=== PATIENT | male | born 1930 | race African-American/Black ===

== ENCOUNTER 2016-06-07 06:50 | Inpatient (IN) | payer OTHER ==
[~2016-06-07] VITALS: Ht 167.6 cm; Wt 70.0 kg
[2016-06-07] MEDS ORDERED: IPRATROPIUM BROM 0.5 MG/2.5ML INH SOL NEB ONE (07:00)
[2016-06-07] MEDS ORDERED: methylPREDNISolone SOD SUCC 125 MG/2 ML VL IV ONE (07:00)
[2016-06-07] MEDS ORDERED: ALBUTEROL SULF 2.5 MG/0.5ML(0.5%) NEB SOLN HHN STA (07:00)
[2016-06-07 07:57] LABS: Basophils # (auto) 0 uL; Basophils % (auto) 0.3 % (0.0-2.0); DEFINITIVE VIEW TRANSMISSION; Eosinophils # (auto) 0.3 uL; Eosinophils % (auto) 2.4 % (0.0-7.0); Hematocrit 29.4 % (41.0-53.0); Hemoglobin 9.4 g/dL (13.5-17.5); Lymphocytes # (auto) 0.7 uL; Lymphocytes % (auto) 5.7 % (10.0-50.0); Mean Corpuscular Hemoglobin 31.6 pg (28.0-32.0); Mean Corpuscular Volume 98.8 fL (80.0-100.0); Monocytes # (auto) 0.9 uL; Neutrophils # (auto) 11.1 uL; Neutrophils % (auto) 84.6 % (37.0-80.0); White Blood Cell 13.1 10^3/uL (4.4-10.8)
[2016-06-07] MEDS ORDERED: LEVOFLOXACIN 500MG 100 ML IV ONE (08:15)
[2016-06-07 08:22] LABS: Red Cell Distribution Width 24.4 % (11.6-16.0)
[2016-06-07 08:24] LABS: Platelet Count (auto) 981 10^3/uL (140-450)
[2016-06-07 08:26] LABS: Albumin 3.3 g/dL (3.4-5.0); BUN/Creatinine Ratio 12.6; Bilirubin, Total 0.4 mg/dL (0.2-1.0); Magnesium 2.8 mg/dL (1.6-2.6)
[2016-06-07] MEDS ORDERED: SODIUM CHLORIDE 0.9% 1,000 ML IV SCH (08:33)
[2016-06-07 08:38] LABS: B-Type Natriuretic Peptide 185.02 pg/mL (0-100); Temperature: 22.4 C (20.0-25.0)
[2016-06-07] MEDS ORDERED: ACETAMINOPHEN 500 MG TAB PO PRN (08:45)
[2016-06-07] MEDS ORDERED: LACTULOSE 20Gm/30ML SOLN PO PRN (08:45)
[2016-06-07] MEDS ORDERED: OSELTAMIVIR 75 MG CAP PO ONE (08:45)
[2016-06-07] MEDS ORDERED: MORPHINE SULF INJ 2 MG/ML SYRINGE 1ML IV PRN ×2 (08:45)
[2016-06-07] MEDS ORDERED: LORazepam 0.5 MG TAB PO PRN (08:45)
[2016-06-07] MEDS ORDERED: ONDANSETRON HCL 4 MG/2 ML VIAL IV PRN (08:45)
[2016-06-07] MEDS ORDERED: ALBUTEROL SULF 2.5 MG/0.5ML(0.5%) NEB SOLN NEB PRN (08:45)
[2016-06-07] MEDS: cefTRIAXone 1GM/50ML D5W 50 ML IV SCH (09:16)
[2016-06-07] MEDS: AZITHROMYCIN 500MG/D5W 250ML 250 ML IV SCH (10:00)
[2016-06-07] MEDS: ENOXAPARIN SOD 40 MG/0.4 ML SYRINGE SC SCH (10:00)
[2016-06-07 12:05] LABS: Anisocytosis Moderate; Ovalocytes FEW; Platelet Estimate Markedly Increased
[2016-06-07] MEDS: methylPREDNISolone SOD SUCC 40 MG/ML VL IV SCH ×2 (12:05→18:22)
[2016-06-07 12:12] LABS: Burr Cells FEW; Giant Platelets Few
[2016-06-07] MEDS: IPRATROPIUM BROM 0.5 MG/2.5ML INH SOL NEB SCH ×2 (12:15→17:47)
[2016-06-07] MEDS: ALBUTEROL SULF 2.5 MG/0.5ML(0.5%) NEB SOLN NEB SCH ×2 (12:15→17:47)
[2016-06-07 15:35] VITALS: BP 148/55
[2016-06-07] MEDS ORDERED: hydrALAZINE HCL 20 MG/ML VL IV ONE (18:15)
[2016-06-07] MEDS: NITROGLYCERIN 0.4 MG SL TAB SL PRN (18:20)
[2016-06-07] MEDS ORDERED: IPRATROPIUM BROM 0.5 MG/2.5ML INH SOL ONE ×2 (18:36→18:41)
[2016-06-07] MEDS ORDERED: ALBUTEROL SULF 2.5 MG/0.5ML(0.5%) NEB SOLN ONE (18:42)
[2016-06-07] MEDS ORDERED: ASPirin 81 mg TAB PO ONE (19:00)
[2016-06-07] MEDS: FUROSEMIDE 40 MG/4 ML VIAL IV SCH (19:11)
[2016-06-07 20:00] VITALS: BP 150/57
[2016-06-07 20:53] LABS: B-Type Natriuretic Peptide 289.17 pg/mL (0-100)
[2016-06-07 20:54] LABS: Temperature: 23.1 C (20.0-25.0)
[2016-06-07] MEDS ORDERED: OSELTAMIVIR 75 MG CAP PO SCH (22:00)
[2016-06-07] MEDS: ATORVASTATIN 20 MG TAB PO SCH (22:10)
[2016-06-08] MEDS: methylPREDNISolone SOD SUCC 40 MG/ML VL IV SCH ×4 (00:15→18:14)
[2016-06-08] MEDS: IPRATROPIUM BROM 0.5 MG/2.5ML INH SOL NEB SCH ×4 (00:40→18:25)
[2016-06-08] MEDS: ALBUTEROL SULF 2.5 MG/0.5ML(0.5%) NEB SOLN NEB SCH ×4 (00:40→18:26)
[2016-06-08 02:07] VITALS: BP 150/57
[2016-06-08] MEDS: NITROGLYCERIN 0.4 MG SL TAB SL PRN (03:28)
[2016-06-08 04:29] LABS: Basophils # (auto) 0 uL; Basophils % (auto) 0.1 % (0.0-2.0); DEFINITIVE VIEW TRANSMISSION; Eosinophils # (auto) 0 uL; Hematocrit 26.8 % (41.0-53.0); Hemoglobin 8.6 g/dL (13.5-17.5); Lymphocytes # (auto) 0.7 uL; Lymphocytes % (auto) 5.1 % (10.0-50.0); Mean Corpuscular Hemoglobin 31.3 pg (28.0-32.0); Mean Corpuscular Hgb Conc. 32.1 g/dL (32.0-36.0); Mean Corpuscular Volume 97.5 fL (80.0-100.0); Mean Platelet Volume 7.3 fL (7.4-10.4); Monocytes # (auto) 0.6 uL; Monocytes % (auto) 4.2 % (0.0-12.0); Neutrophils # (auto) 12.3 uL; Neutrophils % (auto) 90.6 % (37.0-80.0); SUSPECT VIEW TRANSMISSION; White Blood Cell 13.6 10^3/uL (4.4-10.8)
[2016-06-08 04:32] LABS: Red Cell Distribution Width 24.2 % (11.6-16.0)
[2016-06-08 04:37] LABS: Platelet Count (auto) 923 10^3/uL (140-450)
[2016-06-08 04:44] LABS: Anisocytosis Moderate; Burr Cells FEW; Giant Platelets Few; Ovalocytes FEW; Platelet Estimate Markedly Increased; Tear Drop Cells FEW
[2016-06-08 05:06] LABS: Albumin 3.1 g/dL (3.4-5.0); Bilirubin, Total 0.4 mg/dL (0.2-1.0); Calcium 8.8 mg/dL (8.5-10.1); Potassium 4.6 mmol/L (3.5-5.1); Total Protein 6.7 g/dL (6.4-8.2)
[2016-06-08 05:25] LABS: B-Type Natriuretic Peptide 317.61 pg/mL (0-100)
[2016-06-08] MEDS: cefTRIAXone 1GM/50ML D5W 50 ML IV SCH (09:17)
[2016-06-08] MEDS: ASPirin 81 mg TAB PO SCH (10:00)
[2016-06-08] MEDS: AZITHROMYCIN 500MG/D5W 250ML 250 ML IV SCH (10:00)
[2016-06-08] MEDS: ENOXAPARIN SOD 40 MG/0.4 ML SYRINGE SC SCH (10:00)
[2016-06-08] MEDS: FUROSEMIDE 40 MG/4 ML VIAL IV SCH (10:00)
[2016-06-08] MEDS: NITROGLYCERIN 0.2MG/HR TOPICAL PATCH TD SCH (10:00)
[2016-06-08] MEDS: POTASSIUM CHL 20 Meq TABLET PO SCH (10:00)
[2016-06-08] MEDS ORDERED: AML5T PO (10:59)
[2016-06-08] MEDS ORDERED: ATOR10TA PO (10:59)
[2016-06-08] MEDS ORDERED: TERA2CAP45 PO (10:59)
[2016-06-08] MEDS ORDERED: LEVO100T8 PO (11:01)
[2016-06-08] MEDS ORDERED: ATEN-60 PO (11:01)
[2016-06-08] MEDS ORDERED: MULTPOW OR (11:08)
[2016-06-08] MEDS ORDERED: PEN400T PO (11:08)
[2016-06-08] MEDS ORDERED: ASPI-498 OR (11:08)
[2016-06-08] MEDS ORDERED: COEN400C8 OR (11:08)
[2016-06-08] MEDS ORDERED: GINK500C PO (11:10)
[2016-06-08] MEDS ORDERED: [UNRECOGNIZED DRUG - OTHER] PO (11:12)
[2016-06-08] MEDS ORDERED: [UNRECOGNIZED DRUG - CODE] EX (11:17)
[2016-06-08] MEDS ORDERED: CARVEDILOL 12.5 MG TAB PO ONE (11:30)
[2016-06-08] MEDS ORDERED: hydrALAZINE HCL 20 MG/ML VL IV ONE (11:30)
[2016-06-08] MEDS ORDERED: ENOXAPARIN SOD 80 MG/0.8ML SYRINGE SC SCH (22:00)
[2016-06-08] MEDS: CARVEDILOL 12.5 MG TAB PO SCH (22:21)
[2016-06-08] MEDS: ATORVASTATIN 20 MG TAB PO SCH (22:21)
[2016-06-09] MEDS: ALBUTEROL SULF 2.5 MG/0.5ML(0.5%) NEB SOLN NEB SCH ×4 (00:22→18:45)
[2016-06-09] MEDS: IPRATROPIUM BROM 0.5 MG/2.5ML INH SOL NEB SCH ×4 (00:22→18:45)
[2016-06-09] MEDS: methylPREDNISolone SOD SUCC 40 MG/ML VL IV SCH ×4 (00:27→20:38)
[2016-06-09 05:50] LABS: Basophils # (auto) 0 uL; DEFINITIVE VIEW TRANSMISSION; Eosinophils # (auto) 0 uL; Hematocrit 26.4 % (41.0-53.0); Hemoglobin 8.6 g/dL (13.5-17.5); Lymphocytes # (auto) 0.4 uL; Lymphocytes % (auto) 2.6 % (10.0-50.0); Mean Corpuscular Hemoglobin 31.3 pg (28.0-32.0); Mean Corpuscular Hgb Conc. 32.5 g/dL (32.0-36.0); Mean Corpuscular Volume 96.4 fL (80.0-100.0); Mean Platelet Volume 7.2 fL (7.4-10.4); Monocytes # (auto) 0.8 uL; Monocytes % (auto) 4.7 % (0.0-12.0); Neutrophils # (auto) 15.1 uL; Neutrophils % (auto) 92.7 % (37.0-80.0); SUSPECT VIEW TRANSMISSION; White Blood Cell 16.3 10^3/uL (4.4-10.8)
[2016-06-09 06:01] LABS: Red Cell Distribution Width 24.6 % (11.6-16.0)
[2016-06-09 06:03] LABS: Platelet Count (auto) 879 10^3/uL (140-450)
[2016-06-09 06:40] LABS: BUN/Creatinine Ratio 18.4; Calcium 8.8 mg/dL (8.5-10.1); Potassium 4.3 mmol/L (3.5-5.1)
[2016-06-09 06:52] LABS: Anisocytosis Slight; Platelet Estimate Increased
[2016-06-09] MEDS: CARVEDILOL 12.5 MG TAB PO SCH ×2 (09:38→21:46)
[2016-06-09] MEDS: AZITHROMYCIN 500MG/D5W 250ML 250 ML IV SCH (09:38)
[2016-06-09] MEDS: cefTRIAXone 1GM/50ML D5W 50 ML IV SCH (09:38)
[2016-06-09] MEDS: FUROSEMIDE 40 MG/4 ML VIAL IV SCH (09:38)
[2016-06-09] MEDS: ASPirin 81 mg TAB PO SCH (09:38)
[2016-06-09] MEDS: ENOXAPARIN SOD 80 MG/0.8ML SYRINGE SC SCH (09:39)
[2016-06-09] MEDS: POTASSIUM CHL 20 Meq TABLET PO SCH (09:39)
[2016-06-09] MEDS: NITROGLYCERIN 0.2MG/HR TOPICAL PATCH TD SCH (09:39)
[2016-06-09] MEDS: HYDROcodone-ACET 5/325MG TAB PO PRN (13:06)
[2016-06-09] MEDS ORDERED: ISOSORBIDE MONONITRATE 60 MG TAB PO ONE (14:45)
[2016-06-09] MEDS ORDERED: GASTROGRAFIN 30 ML SOL ONE (14:48)
[2016-06-09 19:12] VITALS: BP 157/82
[2016-06-09 20:00] VITALS: BP 145/68
[2016-06-09] MEDS: ATORVASTATIN 20 MG TAB PO SCH (21:45)
[2016-06-09 21:58] VITALS: BP 145/68
[2016-06-10] VITALS (8 sets, daily range): BP systolic 145–153; BP diastolic 68–82
[2016-06-10] MEDS: methylPREDNISolone SOD SUCC 40 MG/ML VL IV SCH ×5 (00:13→23:30)
[2016-06-10] MEDS: IPRATROPIUM BROM 0.5 MG/2.5ML INH SOL NEB SCH ×5 (00:30→23:45)
[2016-06-10] MEDS: ALBUTEROL SULF 2.5 MG/0.5ML(0.5%) NEB SOLN NEB SCH ×5 (00:30→23:45)
[2016-06-10] MEDS: cefTRIAXone 1GM/50ML D5W 50 ML IV SCH (09:59)
[2016-06-10] MEDS: ENOXAPARIN SOD 80 MG/0.8ML SYRINGE SC SCH (10:00)
[2016-06-10] MEDS: FUROSEMIDE 40 MG/4 ML VIAL IV SCH (10:00)
[2016-06-10] MEDS: POTASSIUM CHL 20 Meq TABLET PO SCH (10:00)
[2016-06-10] MEDS: ASPirin 81 mg TAB PO SCH (10:01)
[2016-06-10] MEDS: ISOSORBIDE MONONITRATE 60 MG TAB PO SCH (10:01)
[2016-06-10] MEDS: CARVEDILOL 12.5 MG TAB PO SCH (12:41)
[2016-06-10] MEDS: AZITHROMYCIN 500MG/D5W 250ML 250 ML IV SCH (12:44)
[2016-06-10] MEDS ORDERED: PPN PER PHARMACY 0 ML IV SCH (20:15)
[2016-06-10] MEDS ORDERED: AMINO ACID INFUSION IN D10W 1,000 ML IV NR (22:00)
[2016-06-10] MEDS: ATORVASTATIN 20 MG TAB PO SCH (22:00)
[2016-06-10] MEDS: metroNIDAZOLE 500MG/100ML 100 ML IV SCH (23:30)
[2016-06-11] VITALS (8 sets, daily range): BP systolic 120–165; BP diastolic 65–83
[2016-06-11] MEDS ORDERED: metroNIDAZOLE 500MG/100ML 100 ML IV SCH
[2016-06-11] MEDS: HYDROcodone-ACET 5/325MG TAB PO PRN (01:37)
[2016-06-11] MEDS: methylPREDNISolone SOD SUCC 40 MG/ML VL IV SCH ×3 (05:40→18:51)
[2016-06-11] MEDS: metroNIDAZOLE 500MG/100ML 100 ML IV SCH ×3 (05:40→18:51)
[2016-06-11] MEDS: ACCU-CHEK COMFORT CURVE STRIP VI SCH (05:41)
[2016-06-11 06:19] LABS: Basophils # (auto) 0 uL; DEFINITIVE VIEW TRANSMISSION; Eosinophils # (auto) 0 uL; Hematocrit 28.1 % (41.0-53.0); Hemoglobin 9.2 g/dL (13.5-17.5); Lymphocytes # (auto) 0.5 uL; Lymphocytes % (auto) 3.8 % (10.0-50.0); Mean Corpuscular Hemoglobin 31.7 pg (28.0-32.0); Mean Corpuscular Hgb Conc. 32.6 g/dL (32.0-36.0); Mean Platelet Volume 7.7 fL (7.4-10.4); Monocytes # (auto) 0.9 uL; Monocytes % (auto) 6.4 % (0.0-12.0); Neutrophils # (auto) 12.3 uL; Neutrophils % (auto) 89.8 % (37.0-80.0); White Blood Cell 13.7 10^3/uL (4.4-10.8)
[2016-06-11 06:30] LABS: INR 1.06 (0.9-1.15); Partial Thromboplastin Time 31.6 sec (22.64-33.71); Prothrombin Time 11.4 sec (9.37-12.3)
[2016-06-11] MEDS: ALBUTEROL SULF 2.5 MG/0.5ML(0.5%) NEB SOLN NEB SCH ×3 (06:32→18:46)
[2016-06-11] MEDS: IPRATROPIUM BROM 0.5 MG/2.5ML INH SOL NEB SCH ×3 (06:32→18:46)
[2016-06-11 06:40] LABS: Red Cell Distribution Width 24.5 % (11.6-16.0)
[2016-06-11 06:42] LABS: Platelet Count (auto) 991 10^3/uL (140-450)
[2016-06-11 06:49] LABS: Albumin 2.6 g/dL (3.4-5.0); BUN/Creatinine Ratio 22.5; Bilirubin, Total 0.2 mg/dL (0.2-1.0); Calcium 8.3 mg/dL (8.5-10.1); Magnesium 3.2 mg/dL (1.6-2.6); Potassium 4.4 mmol/L (3.5-5.1); Total Protein 6.1 g/dL (6.4-8.2)
[2016-06-11 07:18] LABS: Anisocytosis Moderate; Ovalocytes FEW
[2016-06-11 07:28] LABS: Platelet Estimate Increased; Schistocytes FEW
[2016-06-11 07:29] LABS: Large Platelets FEW; Stomatocytes Few
[2016-06-11] MEDS: cefTRIAXone 1GM/50ML D5W 50 ML IV SCH (08:56)
[2016-06-11] MEDS: FUROSEMIDE 40 MG/4 ML VIAL IV SCH (08:57)
[2016-06-11] MEDS: ASPirin 81 mg TAB PO SCH (08:57)
[2016-06-11] MEDS: ISOSORBIDE MONONITRATE 60 MG TAB PO SCH (08:58)
[2016-06-11] MEDS: POTASSIUM CHL 20 Meq TABLET PO SCH (08:58)
[2016-06-11] MEDS: AZITHROMYCIN 500MG/D5W 250ML 250 ML IV SCH (09:40)
[2016-06-11] MEDS ORDERED: PPN PER PHARMACY IV NR ×8 (20:00)
[2016-06-11] MEDS: ATORVASTATIN 20 MG TAB PO SCH (21:35)
[2016-06-11] MEDS ORDERED: DEXTROSE (50%) 50ML SYRG IV SCH (22:00)
[2016-06-12] VITALS (7 sets, daily range): BP systolic 114–160; BP diastolic 57–72
[2016-06-12] MEDS: metroNIDAZOLE 500MG/100ML 100 ML IV SCH ×4 (00:01→18:11)
[2016-06-12] MEDS: methylPREDNISolone SOD SUCC 40 MG/ML VL IV SCH ×4 (00:02→18:11)
[2016-06-12] MEDS: ACCU-CHEK COMFORT CURVE STRIP VI SCH ×4 (00:13→18:11)
[2016-06-12] MEDS: InsuLIN REG 1unit/0.01ml Soln (100units/ml) SC SCH ×4 (00:19→18:00)
[2016-06-12] MEDS: ALBUTEROL SULF 2.5 MG/0.5ML(0.5%) NEB SOLN NEB SCH ×4 (01:57→19:24)
[2016-06-12] MEDS: IPRATROPIUM BROM 0.5 MG/2.5ML INH SOL NEB SCH ×4 (01:57→19:24)
[2016-06-12 07:02] LABS: Basophils # (auto) 0 uL; DEFINITIVE VIEW TRANSMISSION; Eosinophils # (auto) 0 uL; Hematocrit 29.8 % (41.0-53.0); Hemoglobin 9.5 g/dL (13.5-17.5); Lymphocytes # (auto) 0.2 uL; Lymphocytes % (auto) 1.4 % (10.0-50.0); Mean Corpuscular Hemoglobin 30.9 pg (28.0-32.0); Mean Corpuscular Hgb Conc. 32.1 g/dL (32.0-36.0); Mean Corpuscular Volume 96.4 fL (80.0-100.0); Mean Platelet Volume 7.4 fL (7.4-10.4); Monocytes # (auto) 1.3 uL; Monocytes % (auto) 8.3 % (0.0-12.0); Neutrophils # (auto) 14.2 uL; Neutrophils % (auto) 90.3 % (37.0-80.0); White Blood Cell 15.8 10^3/uL (4.4-10.8)
[2016-06-12 07:17] LABS: Albumin 2.6 g/dL (3.4-5.0); BUN/Creatinine Ratio 25.2; Bilirubin, Total 0.2 mg/dL (0.2-1.0); Calcium 8.3 mg/dL (8.5-10.1); Magnesium 3.3 mg/dL (1.6-2.6); Phosphorus 2.7 mg/dL (2.5-4.90); Potassium 4.3 mmol/L (3.5-5.1); Total Protein 6.2 g/dL (6.4-8.2)
[2016-06-12 08:06] LABS: Red Cell Distribution Width 23.8 % (11.6-16.0)
[2016-06-12 08:14] LABS: Platelet Count (auto) 1065 10^3/uL (140-450)
[2016-06-12] MEDS: cefTRIAXone 1GM/50ML D5W 50 ML IV SCH (09:19)
[2016-06-12] MEDS: POTASSIUM CHL 20 Meq TABLET PO SCH (09:20)
[2016-06-12] MEDS: ASPirin 81 mg TAB PO SCH (09:20)
[2016-06-12] MEDS: ISOSORBIDE MONONITRATE 60 MG TAB PO SCH (09:20)
[2016-06-12] MEDS: FUROSEMIDE 40 MG/4 ML VIAL IV SCH (09:21)
[2016-06-12] MEDS: AZITHROMYCIN 500MG/D5W 250ML 250 ML IV SCH (11:14)
[2016-06-12 14:08] LABS: Platelet Clumps FEW
[2016-06-12 14:09] LABS: Large Platelets FEW; Platelet Estimate Marked
[2016-06-12 14:10] LABS: Burr Cells FEW
[2016-06-12 14:11] LABS: Anisocytosis Moderate; Ovalocytes FEW; Schistocytes FEW; Stomatocytes Few
[2016-06-12] MEDS ORDERED: PPN PER PHARMACY IV NR ×8 (20:00)
[2016-06-12] MEDS: ATORVASTATIN 20 MG TAB PO SCH (21:43)
[2016-06-13] MEDS: methylPREDNISolone SOD SUCC 40 MG/ML VL IV SCH ×3 (00:20→12:52)
[2016-06-13] MEDS: metroNIDAZOLE 500MG/100ML 100 ML IV SCH ×3 (00:20→12:54)
[2016-06-13] MEDS: ACCU-CHEK COMFORT CURVE STRIP VI SCH ×3 (00:20→13:07)
[2016-06-13] MEDS: ALBUTEROL SULF 2.5 MG/0.5ML(0.5%) NEB SOLN NEB SCH ×3 (00:47→12:00)
[2016-06-13] MEDS: IPRATROPIUM BROM 0.5 MG/2.5ML INH SOL NEB SCH ×3 (00:47→12:00)
[2016-06-13 05:12] VITALS: BP 170/66
[2016-06-13] MEDS: InsuLIN REG 1unit/0.01ml Soln (100units/ml) SC SCH ×3 (05:54→12:00)
[2016-06-13 07:46] LABS: BUN/Creatinine Ratio 24.8; Potassium 4.2 mmol/L (3.5-5.1)
[2016-06-13 07:47] LABS: Albumin 2.5 g/dL (3.4-5.0); Bilirubin, Total 0.2 mg/dL (0.2-1.0); Calcium 8.2 mg/dL (8.5-10.1); Magnesium 3.1 mg/dL (1.6-2.6); Phosphorus 2.2 mg/dL (2.5-4.90); Total Protein 5.7 g/dL (6.4-8.2)
[2016-06-13 08:00] VITALS: BP 164/59
[2016-06-13] MEDS ORDERED: GASTROGRAFIN 30 ML SOL ONE (08:11)
[2016-06-13 09:00] VITALS: BP 164/59
[2016-06-13] MEDS ORDERED: SODIUM PHOSP 20MEQ(15MMOL) IN NS 100 ML IV ONE (09:00)
[2016-06-13] MEDS: cefTRIAXone 1GM/50ML D5W 50 ML IV SCH (09:19)
[2016-06-13] MEDS: AZITHROMYCIN 500MG/D5W 250ML 250 ML IV SCH (11:09)
[2016-06-13] MEDS ORDERED: IOHEXOL 300 MG/ML 100ML BOTTLE IJ ONE (12:04)
[2016-06-13] MEDS: FUROSEMIDE 40 MG/4 ML VIAL IV SCH (12:52)
[2016-06-13] MEDS: ISOSORBIDE MONONITRATE 60 MG TAB PO SCH (12:53)
[2016-06-13] MEDS: POTASSIUM CHL 20 Meq TABLET PO SCH (12:53)
[2016-06-13] MEDS: ASPirin 81 mg TAB PO SCH (12:53)
[2016-06-13 13:00] VITALS: BP 177/80
[2016-06-13 14:49] VITALS: BP 164/59
[2016-06-13] MEDS: HYDROcodone-ACET 5/325MG TAB PO PRN (16:02)
[2016-06-13] MEDS ORDERED: PPN PER PHARMACY IV NR ×8 (20:00)
== END 2016-06-13 16:05 | disposition home or self-care (01) | DRG 280 ==
LOC: EDBD 06:50 → ER 06:55 → EDSEX 06:55 → TELE 06:56 → TELE-EAST 06-09 18:38
PROVIDERS: ADMIT Internal Medicine; ATTEND Internal Medicine Pulmonary Disease
PROC: 5A09357 Assistance with Respiratory Ventilation, Less than 24 Consecutive Hours, Continuous Positive Airway Pressure (ICD-10-PCS; principal; 2016-06-07)
DX: I21.4 Non-ST elevation (NSTEMI) myocardial infarction (principal); J18.1 Lobar pneumonia, unspecified organism; J96.00 Acute respiratory failure, unspecified whether with hypoxia or hypercapnia; J44.0 Chronic obstructive pulmonary disease with (acute) lower respiratory infection; J98.11 Atelectasis; J44.1 Chronic obstructive pulmonary disease with (acute) exacerbation; I25.10 Atherosclerotic heart disease of native coronary artery without angina pectoris; E03.9 Hypothyroidism, unspecified; K40.90 Unilateral inguinal hernia, without obstruction or gangrene, not specified as recurrent; I48.91 Unspecified atrial fibrillation; D64.9 Anemia, unspecified; F17.200 Nicotine dependence, unspecified, uncomplicated; D75.89 Other specified diseases of blood and blood-forming organs; I11.0 Hypertensive heart disease with heart failure; I50.9 Heart failure, unspecified; K57.90 Diverticulosis of intestine, part unspecified, without perforation or abscess without bleeding; K80.20 Calculus of gallbladder without cholecystitis without obstruction; M41.9 Scoliosis, unspecified; M51.36 Other intervertebral disc degeneration, lumbar region; Z85.46 Personal history of malignant neoplasm of prostate; Z79.82 Long term (current) use of aspirin; Z79.899 Other long term (current) drug therapy
CPT/HCPCS: 36415; 36600; 71010; 71260; 74176; 74177; 78582; 80048; 80053; 80061; 82040; 82270; 82550; 82805; 82962; 83605; 83735; 83880; 84100; 84443; 84484; 85025; 85610; 85652; 85730; 86141; 86850; 86900; 86901; 87040; 87070; 87205; 87400; 93005; 93306; 94640; 94660; 96365; 96375; 99291; J0696; J1815; J1956; J2405; J3490

== ENCOUNTER 2016-07-02 02:21 | Emergency (ER) | payer OTHER ==
[~2016-07-02] VITALS: Ht 182.9 cm; Wt 90.7 kg
[~2016-07-02 02:21] MED LIST: AML5T PO; ASPI-498 OR; ATEN-60 PO; ATOR10TA PO; COEN400C8 OR; GINK500C PO; LEVO100T8 PO; MULTPOW OR; PEN400T PO; TERA2CAP45 PO; [UNRECOGNIZED DRUG - CODE] EX; [UNRECOGNIZED DRUG - OTHER] PO
[2016-07-02 03:59] LABS: Basophils # (auto) 0.1 uL; Basophils % (auto) 0.4 % (0.0-2.0); DEFINITIVE VIEW TRANSMISSION; Eosinophils # (auto) 0.1 uL; Eosinophils % (auto) 0.6 % (0.0-7.0); Hematocrit 24.6 % (41.0-53.0); Hemoglobin 7.9 g/dL (13.5-17.5); Lymphocytes # (auto) 0.6 uL; Lymphocytes % (auto) 4.2 % (10.0-50.0); Mean Corpuscular Hemoglobin 30.8 pg (28.0-32.0); Mean Corpuscular Volume 96.3 fL (80.0-100.0); Mean Platelet Volume 7.6 fL (7.4-10.4); Monocytes % (auto) 7.6 % (0.0-12.0); Neutrophils # (auto) 11.9 uL; Neutrophils % (auto) 87.2 % (37.0-80.0); SUSPECT VIEW TRANSMISSION; White Blood Cell 13.7 10^3/uL (4.4-10.8)
[2016-07-02 04:08] LABS: Albumin 2.4 g/dL (3.4-5.0); BUN/Creatinine Ratio 6.8; Calcium 7.7 mg/dL (8.5-10.1); Magnesium 2.5 mg/dL (1.6-2.6); Potassium 4.1 mmol/L (3.5-5.1)
[2016-07-02 04:13] LABS: Bilirubin, Total 0.3 mg/dL (0.2-1.0); Total Protein 5.9 g/dL (6.4-8.2)
[2016-07-02 04:24] LABS: Red Cell Distribution Width 25.2 % (11.6-16.0)
[2016-07-02 04:26] LABS: Platelet Count (auto) 827 10^3/uL (140-450)
[2016-07-02 04:27] LABS: INR 1.13 (0.9-1.15); Partial Thromboplastin Time 28.3 sec (22.64-33.71); Prothrombin Time 12.2 sec (9.37-12.3)
[2016-07-02 04:43] LABS: Temperature: 20.8 C (20.0-25.0)
[2016-07-02 04:46] LABS: Anisocytosis Moderate; Platelet Estimate MA; Polychromasia Slight; Schistocytes FEW
[2016-07-02 04:47] LABS: Ovalocytes MODERATE
[2016-07-02] MEDS ORDERED: ENOXAPARIN SOD 100 MG/1 ML SYRINGE SC ONE (09:15)
[2016-07-02] MEDS ORDERED: PIPERACILLIN-TAZOB 3.375GM 100 ML IV ONE (09:15)
[2016-07-02] MEDS ORDERED: FUROSEMIDE 40 MG/4 ML VIAL IV ONE (09:15)
[2016-07-02 11:17] VITALS: BP 129/50
== END 2016-07-02 11:24 | disposition short-term general hospital (02) ==
LOC: EDBD 02:21 → ER 02:23
DX: J18.9 Pneumonia, unspecified organism (principal); I11.0 Hypertensive heart disease with heart failure; I50.9 Heart failure, unspecified; I48.91 Unspecified atrial fibrillation; J44.9 Chronic obstructive pulmonary disease, unspecified; I25.2 Old myocardial infarction; E07.9 Disorder of thyroid, unspecified; F17.210 Nicotine dependence, cigarettes, uncomplicated
CPT/HCPCS: 36415; 71010; 80053; 83605; 83735; 83880; 84484; 85025; 85610; 85730; 87040; 93005; 93970; 96365; 96366; 96372; 96375; 99291; J1650; J1940; J2543

== ENCOUNTER 2016-07-14 01:38 | Emergency (ER) | payer OTHER ==
[~2016-07-14] VITALS: Ht 177.8 cm; Wt 63.5 kg
[2016-07-14] MEDS ORDERED: methylPREDNISolone SOD SUCC 125 MG/2 ML VL ONE (01:45)
[2016-07-14] MEDS ORDERED: IPRATROPIUM BROM 0.5 MG/2.5ML INH SOL NEB ONE (02:00)
[2016-07-14] MEDS ORDERED: methylPREDNISolone SOD SUCC 125 MG/2 ML VL IV ONE (02:00)
[2016-07-14] MEDS ORDERED: ALBUTEROL SULF 2.5 MG/0.5ML(0.5%) NEB SOLN NEB ONE (02:00)
[2016-07-14 02:41] LABS: Albumin 2.9 g/dL (3.4-5.0); BUN/Creatinine Ratio 8.8; Calcium 9.2 mg/dL (8.5-10.1); Potassium 4.4 mmol/L (3.5-5.1)
[2016-07-14 02:45] LABS: Bilirubin, Total 0.5 mg/dL (0.2-1.0); Total Protein 7.4 g/dL (6.4-8.2)
[2016-07-14 02:52] LABS: Basophils # (auto) 0.1 uL; Basophils % (auto) 0.6 % (0.0-2.0); DEFINITIVE VIEW TRANSMISSION; Eosinophils # (auto) 0.1 uL; Eosinophils % (auto) 1.1 % (0.0-7.0); Hematocrit 28.6 % (41.0-53.0); Hemoglobin 9.1 g/dL (13.5-17.5); Lymphocytes # (auto) 2.8 uL; Lymphocytes % (auto) 22.5 % (10.0-50.0); Mean Corpuscular Hemoglobin 31.3 pg (28.0-32.0); Mean Corpuscular Volume 97.9 fL (80.0-100.0); Mean Platelet Volume 7.3 fL (7.4-10.4); Monocytes # (auto) 0.9 uL; Monocytes % (auto) 7.3 % (0.0-12.0); Neutrophils # (auto) 8.6 uL; Neutrophils % (auto) 68.5 % (37.0-80.0); SUSPECT VIEW TRANSMISSION; White Blood Cell 12.6 10^3/uL (4.4-10.8)
[2016-07-14] MEDS ORDERED: FUROSEMIDE 20 MG/2 ML VIAL IV ONE (03:00)
[2016-07-14 03:09] LABS: Red Cell Distribution Width 25.4 % (11.6-16.0)
[2016-07-14 03:20] LABS: INR 1.04 (0.9-1.15); Partial Thromboplastin Time 25.7 sec (22.64-33.71); Prothrombin Time 11.2 sec (9.37-12.3)
[2016-07-14] MEDS ORDERED: SODIUM CHLORIDE 0.9% 1,000 ML IV ONE (03:30)
[2016-07-14 03:38] LABS: Anisocytosis Slight; Ovalocytes FEW; Platelet Estimate Markedly Increased; Polychromasia Slight
[2016-07-14 03:39] LABS: Platelet Count (auto) 989 10^3/uL (140-450)
[2016-07-14 03:54] LABS: Temperature: 21.9 C (20.0-25.0)
[2016-07-14] MEDS ORDERED: cefTRIAXone 1GM/50ML D5W 50 ML IV ONE (05:45)
[2016-07-14] MEDS ORDERED: AZITHROMYCIN 500MG/D5W 250ML 250 ML IV ONE (05:45)
[2016-07-14 07:46] VITALS: BP 147/63
[2016-07-14 08:45] VITALS: BP 129/57
== END 2016-07-14 09:06 | disposition short-term general hospital (02) ==
LOC: EDBD 01:38 → ER 01:49
DX: J96.00 Acute respiratory failure, unspecified whether with hypoxia or hypercapnia (principal); J18.9 Pneumonia, unspecified organism; J44.1 Chronic obstructive pulmonary disease with (acute) exacerbation; I11.0 Hypertensive heart disease with heart failure; I50.9 Heart failure, unspecified; F17.210 Nicotine dependence, cigarettes, uncomplicated; I48.91 Unspecified atrial fibrillation
CPT/HCPCS: 36415; 36600; 71010; 80053; 82805; 83880; 84484; 85025; 85379; 85610; 85730; 93005; 94640; 94660; 96361; 96365; 96366; 96368; 96375; 99285; J0456; J0696; J1940; J2930; J7030